=== PATIENT | female | born 1965 | race Two or more races ===

== ENCOUNTER 2024-09-26 11:16 | Outpatient (CLI) | payer BC | END 2024-09-26 23:59 | disposition home or self-care (01) | LOC: RAD 11:16 | PROVIDERS: ATTEND Family Medicine | DX: Z01.818 Encounter for other preprocedural examination (principal) | CPT/HCPCS: 71046 ==

== ENCOUNTER 2024-10-03 08:24 | Day surgery (SDC) | payer BC | END 2024-10-03 11:30 | disposition home or self-care (01) | LOC: DS 08:24 | PROVIDERS: ATTEND Surgery | DX: K21.00 Gastro-esophageal reflux disease with esophagitis, without bleeding (principal); K31.89 Other diseases of stomach and duodenum; K29.60 Other gastritis without bleeding; K29.80 Duodenitis without bleeding; K44.9 Diaphragmatic hernia without obstruction or gangrene; I10 Essential (primary) hypertension; J45.909 Unspecified asthma, uncomplicated; Z79.899 Other long term (current) drug therapy | CPT/HCPCS: 43239; 88305; 88312; 88313; J2704; J3490; J7030 ==

== ENCOUNTER 2025-03-06 07:24 | Emergency (ER) | payer BC, OTHER ==
[~2025-03-06] VITALS: Ht 162.6 cm; Wt 77.1 kg
[2025-03-06] MEDS ORDERED: ONDANSETRON HCL/PF 4 MG/2 ML VIAL ONE (07:54)
[2025-03-06] MEDS ORDERED: MAG HYDROX/AL HYDROX/SIMETH 30 ML UDC ONE (07:54)
[2025-03-06 07:55] LABS: PLATELET COUNT (AUTO) 201 K/uL (150-450); RED BLOOD CELL COUNT(AUTO) 4.63 MIL/uL (4.0-5.2); RED CELL DISTRIBUTION WIDTH 12.3 % (11.5-15.0); WHITE BLOOD COUNT (AUTO) 10.2 K/uL (4.3-11.0)
[2025-03-06] MEDS ORDERED: FAMOTIDINE/PF INJ 20 MG/2 ML VIAL IV ONE (07:55)
[2025-03-06] MEDS ORDERED: LIDOCAINE VISCOUS 2% UD 15 ML UDC ONE (07:55)
[2025-03-06] MEDS: IV NS 0.9% 1,000 ML BAG IV ONE (08:00)
[2025-03-06] MEDS: FAMOTIDINE/PF INJ 20 MG/2 ML VIAL IV ONE (08:00)
[2025-03-06 08:06] LABS: CALCIUM, SERUM 9.1 mg/dL (8.5-10.1); CREATININE 0.8 mg/dL (0.6-1.3); SODIUM SERUM 141.0 mmol/L (136-145); UREA NITROGEN, BLOOD 14.0 mg/dL (7-18)
[2025-03-06] MEDS: ONDANSETRON HCL/PF 4 MG/2 ML VIAL IVP ONE (08:06)
[2025-03-06] MEDS: MAG HYDROX/AL HYDROX/SIMETH 30 ML UDC PO ONE (08:06)
[2025-03-06] MEDS: LIDOCAINE VISCOUS 2% UD 15 ML UDC MM ONE (08:06)
[2025-03-06 08:19] LABS: ASPARTATE AMINOTRANSFERASE 20.0 U/L (15-37); TOTAL PROTEIN, SERUM 7.5 g/dL (6.4-8.2)
[2025-03-06 08:34] LABS: APPEARANCE,URINE CLEAR (CLEAR); BLOOD, URINE 1+ Ery/uL (NEGATIVE); LEUKOCYTE ESTERASE ,URINE TRACE (NEGATIVE); NITRITE, URINE NEGATIVE (NEGATIVE); UGLUCOSE NEGATIVE (NEGATIVE)
[2025-03-06] MEDS ORDERED: MORPHINE SULFATE INJ 4 MG/ML DISP.SYRIN ONE (09:17)
[2025-03-06] MEDS ORDERED: HYDR-4303 PO (09:21)
[2025-03-06] MEDS ORDERED: ONDA4TAB5 PO (09:21)
[2025-03-06] MEDS ORDERED: PANT20TA2 PO (09:21)
[2025-03-06 09:23] LABS: ADD URINE CULTURE NO; SQUAMOUS EPITHELIAL CELL,UR Few /HPF (None Seen)
[2025-03-06] MEDS: MORPHINE SULFATE INJ 2 MG/ML DISP.SYRIN IV ONE (09:23)
[2025-03-06 10:00] VITALS: BP 138/90; TEMP 98.2; O2SAT 99
== END 2025-03-06 10:01 | disposition home or self-care (01) ==
LOC: ER 07:30
DX: R10.13 Epigastric pain (principal); K44.9 Diaphragmatic hernia without obstruction or gangrene; Z90.49 Acquired absence of other specified parts of digestive tract; Z90.710 Acquired absence of both cervix and uterus
CPT/HCPCS: 99285; 74176; 96374; 96375; 71045; 96361; 93005; 85025; 80048; 83690; 80076; 81001; 36415; 84484; J2270; J1308; J2405; J7030; A4223

== ENCOUNTER 2025-03-14 10:04 | Outpatient (CLI) | payer BC, OTHER ==
[~2025-03-14 10:04] MED LIST: HYDR-4303 PO; ONDA4TAB5 PO; PANT20TA2 PO
[2025-03-14 10:27] LABS: PLATELET COUNT (AUTO) 237 K/uL (150-450); RED BLOOD CELL COUNT(AUTO) 4.67 MIL/uL (4.0-5.2); RED CELL DISTRIBUTION WIDTH 12.4 % (11.5-15.0); WHITE BLOOD COUNT (AUTO) 9.2 K/uL (4.3-11.0)
[2025-03-14 10:41] LABS: IRON, SERUM 124.0 ug/dl (50-175)
[2025-03-14 10:58] LABS: ASPARTATE AMINOTRANSFERASE 27.0 U/L (15-37); CALCIUM, SERUM 9.5 mg/dL (8.5-10.1); CREATININE 0.9 mg/dL (0.6-1.3); SODIUM SERUM 147.0 mmol/L (136-145); TOTAL PROTEIN, SERUM 7.8 g/dL (6.4-8.2); UREA NITROGEN, BLOOD 14.0 mg/dL (7-18)
== END 2025-03-14 23:59 | disposition home or self-care (01) ==
LOC: LAB 10:04
PROVIDERS: ATTEND Internal Medicine Hematology & Oncology
DX: Z13.228 Encounter for screening for other metabolic disorders (principal); D64.9 Anemia, unspecified
CPT/HCPCS: 36415; 80053-TC; 82728-TC; 83540-TC; 85025-TC

== ENCOUNTER 2025-03-29 13:18 | Outpatient (CLI) | payer BC, OTHER ==
[2025-03-29] MEDS ORDERED: GADOTERATE MEGLUMINE 10 MMOL/20 ML VIAL IV ONE (13:19)
== END 2025-03-29 23:59 | disposition home or self-care (01) ==
LOC: MRI 13:18
PROVIDERS: ATTEND Internal Medicine Hematology & Oncology
DX: E83.111 Hemochromatosis due to repeated red blood cell transfusions (principal); Z90.49 Acquired absence of other specified parts of digestive tract; K83.8 Other specified diseases of biliary tract
CPT/HCPCS: 74183; A9575

== ENCOUNTER 2025-05-03 10:11 | Outpatient (CLI) | payer BC, OTHER ==
[2025-05-03 10:43] LABS: PLATELET COUNT (AUTO) 217 K/uL (150-450); RED BLOOD CELL COUNT(AUTO) 4.24 MIL/uL (4.0-5.2); RED CELL DISTRIBUTION WIDTH 12.6 % (11.5-15.0); WHITE BLOOD COUNT (AUTO) 7.5 K/uL (4.3-11.0)
[2025-05-03 10:53] LABS: IRON, SERUM 70.0 ug/dl (50-175)
[2025-05-03 10:54] LABS: ASPARTATE AMINOTRANSFERASE 24.0 U/L (15-37); CALCIUM, SERUM 9.0 mg/dL (8.5-10.1); CREATININE 1.0 mg/dL (0.6-1.3); SODIUM SERUM 145.0 mmol/L (136-145); TOTAL PROTEIN, SERUM 7.2 g/dL (6.4-8.2); UREA NITROGEN, BLOOD 18.0 mg/dL (7-18)
== END 2025-05-03 23:59 | disposition home or self-care (01) ==
LOC: LAB 10:11
PROVIDERS: ATTEND Internal Medicine Hematology & Oncology
DX: Z13.228 Encounter for screening for other metabolic disorders (principal); D64.9 Anemia, unspecified
CPT/HCPCS: 36415; 80053-TC; 82728-TC; 83540-TC; 85025-TC

== ENCOUNTER 2025-07-29 10:07 | Outpatient (CLI) | payer BC, OTHER ==
[2025-07-29 10:38] LABS: IRON, SERUM 111.0 ug/dl (50-175)
[2025-07-29 10:39] LABS: ASPARTATE AMINOTRANSFERASE 15.0 U/L (15-37); CALCIUM, SERUM 9.1 mg/dL (8.5-10.1); CREATININE 1.0 mg/dL (0.6-1.3); SODIUM SERUM 147.0 mmol/L (136-145); TOTAL PROTEIN, SERUM 7.4 g/dL (6.4-8.2); UREA NITROGEN, BLOOD 22.0 mg/dL (7-18)
[2025-07-29 10:53] LABS: PLATELET COUNT (AUTO) 216 K/uL (150-450); RED BLOOD CELL COUNT(AUTO) 4.67 MIL/uL (4.0-5.2); RED CELL DISTRIBUTION WIDTH 12.6 % (11.5-15.0); WHITE BLOOD COUNT (AUTO) 9.8 K/uL (4.3-11.0)
== END 2025-07-29 23:59 | disposition home or self-care (01) ==
LOC: LAB 10:07
PROVIDERS: ATTEND Internal Medicine Hematology & Oncology
DX: E83.19 Other disorders of iron metabolism (principal)
CPT/HCPCS: 36415; 80053-TC; 82728-TC; 83540-TC; 85025-TC

== ENCOUNTER 2025-08-07 12:50 | Emergency (ER) | payer BC, OTHER ==
[~2025-08-07] VITALS: Ht 162.6 cm; Wt 77.1 kg
[2025-08-07] MEDS ORDERED: ONDANSETRON HCL/PF 4 MG/2 ML VIAL ONE (13:02)
[2025-08-07] MEDS ORDERED: MECLIZINE HCL 25 MG TABLET ONE (13:03)
[2025-08-07] MEDS: MECLIZINE HCL 12.5 MG TABLET PO ONE (13:08)
[2025-08-07] MEDS: IV NS 0.9% 1,000 ML BAG IV ONE (13:31)
[2025-08-07] MEDS: ONDANSETRON HCL/PF 4 MG/2 ML VIAL IVP ONE (13:32)
[2025-08-07 14:01] LABS: PLATELET COUNT (AUTO) 228 K/uL (150-450); RED BLOOD CELL COUNT(AUTO) 4.45 MIL/uL (4.0-5.2); RED CELL DISTRIBUTION WIDTH 12.5 % (11.5-15.0); WHITE BLOOD COUNT (AUTO) 10.6 K/uL (4.3-11.0)
[2025-08-07 14:05] LABS: CALCIUM, SERUM 8.5 mg/dL (8.5-10.1); CREATININE 1.1 mg/dL (0.6-1.3); SODIUM SERUM 144 mmol/L (136-145); UREA NITROGEN, BLOOD 17 mg/dL (7-18)
[2025-08-07 14:11] LABS: ASPARTATE AMINOTRANSFERASE 31 U/L (15-37); TOTAL PROTEIN, SERUM 7.3 g/dL (6.4-8.2)
[2025-08-07] MEDS ORDERED: POTASSIUM CL. PREMIX PERIPHER. 50 ML ONE (15:15)
[2025-08-07] MEDS ORDERED: POTASSIUM CHLORIDE 20 MEQ TAB.PRT.SR PO ONE (15:16)
[2025-08-07] MEDS ORDERED: MECL-159 PO (15:18)
[2025-08-07] MEDS: POTASSIUM CL. PREMIX PERIPHER. 50 ML IV SCH (15:29)
[2025-08-07] MEDS: POTASSIUM CHLORIDE 20 MEQ TAB.PRT.SR PO ONE (15:30)
[2025-08-07] MEDS ORDERED: Magnesium 1GM/D5W 100ML PREMIX 200 ML IV ONE (15:32)
[2025-08-07] MEDS: Magnesium 1GM/D5W 100ML PREMIX 100 ML IV SCH (15:40)
[2025-08-07 17:43] VITALS: BP 128/78; TEMP 97.8; O2SAT 96
== END 2025-08-07 17:51 | disposition home or self-care (01) ==
LOC: ER 12:55
DX: E87.6 Hypokalemia (principal); R42 Dizziness and giddiness; R94.31 Abnormal electrocardiogram [ECG] [EKG]; I10 Essential (primary) hypertension; Z79.899 Other long term (current) drug therapy
CPT/HCPCS: 99285; 96365; 70450; 71045; 96361; 96366; 96375; 96368; 93005; 85025; 80048; 80076; 83735; 36415; 84443; 84484; 82962; J8597; J2405; J7030; J3480; A4223; J3475